=== PATIENT | male | born 1980 | race Caucasian/White ===

== ENCOUNTER 2023-09-01 14:50 | Outpatient (CLI) | payer OTHER, SELFPAY ==
--- NOTE | 2023-09-01 15:30 | MR_ITS ---
Patient: KENYETTA WHITTAKER Facility:?[facility] Patient ID:?[id number] Site Patient ID:?[id number]. Site :?1980 Study:?MRI-Spine Cervical W/O-09/01/2023 4:18:20 PM Ordering Physician:BLAZE SHELDON Final Report: INDICATION: Skin anesthesia. Comparison 08/16/2023. Technique Sagittal T1, T2, and STIR sequences. Axial T2/gradient sequences. FINDINGS: Normal vertebral body and facet alignment. No fractures. No vertebral body loss of height. No spondylosis. No ligamentous injury. No suspicious osseous lesions. Normal cord signal. No intradural mass or lesion. C1-2: No spinal canal narrowing. C2-3: No spinal canal or neural foraminal narrowing. C3-4: Disk degeneration with posterior disc bulge or disc osteophyte complex. No narrowing of spinal canal. Moderate narrowing of the bilateral foramina. C4-5: Disc degeneration. No narrowing of spinal canal. Moderate right and mild left neural foraminal narrowing. Potential impingement of the right C5 nerve root. C5-6: Disc degeneration. Small right paracentral disc protrusion disc osteophyte complex measured approximately tumors in short axis. Moderate narrowing of spinal canal. Moderate narrowing of the bilateral foramina. C6-7: Disc degeneration and central disc protrusion or disc osteophyte complex measuring approximately 3 mm in short axis. Moderate narrowing of spinal canal. Moderate bilateral foraminal narrowing. C7-T1: Disc degeneration. Small left paracentral disc protrusion that approximately 2 mm in short axis. No narrowing of spinal canal. No neural foraminal narrowing. No spinal canal or neural foraminal narrowing in the visualized upper thoracic spine. IMPRESSION: 1. Normal alignment. No fractures. 2. Normal cord signal. No intradural mass or lesion. 3. At C3-4, moderate narrowing of the bilateral neural foramina 4. At C4-5, moderate narrowing of the spinal canal. Moderate narrowing of the bilateral neural foramina 5. At C6-7, moderate narrowing of the spinal canal. Moderate narrowing of the bilateral neural foramina 6. At C7-T1, small left paracentral disc protrusion. Otherwise, no spinal canal or neural foraminal narrowing. Dictated by Rajendra Flanagan MD @ 09/02/2023 8:59:41 AM Signed by:?Rajendra Flanagan MD @09/02/2023 8:59:41 AM (Electronic Signature)
== END 2023-09-01 14:51 | disposition home or self-care (01) ==
LOC: MRI 14:52
PROVIDERS: PCP Family Medicine; Visit Provider Family Medicine
DX: R20.0 Anesthesia of skin (principal); M50.21 Other cervical disc displacement, high cervical region; M50.223 Other cervical disc displacement at C6-C7 level
CPT/HCPCS: 72141

== ENCOUNTER 2023-09-10 10:06 | Outpatient (CLI) | payer OTHER, SELFPAY ==
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
== END 2023-09-10 10:07 | disposition home or self-care (01) ==
PROVIDERS: PCP Family Medicine; Visit Provider Family Medicine
DX: M54.2 Cervicalgia (principal); R51.9 Headache, unspecified; J32.9 Chronic sinusitis, unspecified; V89.2XXA Person injured in unspecified motor-vehicle accident, traffic, initial encounter
CPT/HCPCS: 70450; 72125

== ENCOUNTER 2023-11-29 11:45 | Outpatient (CLI) | payer MEDICAID, SELFPAY | END 2023-11-29 11:46 | disposition home or self-care (01) | PROVIDERS: PCP Family Medicine; Visit Provider Family Medicine | DX: Z01.818 Encounter for other preprocedural examination (principal); Z13.6 Encounter for screening for cardiovascular disorders | CPT/HCPCS: 80048; 80061; 85025 ==